=== PATIENT | male | born 1995 | race Two or more races ===

== ENCOUNTER 2022-11-21 22:31 | Emergency (ER) | payer OTHER ==
[~2022-11-21] VITALS: Ht 170.2 cm; Wt 108.9 kg
[2022-11-21] MEDS ORDERED: LORAZEPAM INJ 2 MG/ML VIAL IM ONE (23:00)
[2022-11-21] MEDS ORDERED: LORAZEPAM INJ 2 MG/ML VIAL ONE (23:05)
[2022-11-21 23:43] LABS: BASOPHILS % (AUTO) 0.4 % (0.0-2.0); EOSINOPHILS % (AUTO) 0.1 % (0.0-6.0); HEMATOCRIT 47 % (39-51); HEMOGLOBIN 15.8 g/dL (13.5-17.5); LYMPHOCYTES # (AUTO) 1.6 K/uL (0.8-4.8); LYMPHOCYTES % (AUTO) 13.6 % (20.0-44.0); MEAN CORPUSCULAR HEMOGLOBIN 29 PG (26.0-33.0); MEAN CORPUSCULAR HGB CONC 34 g/dl (31.0-36.0); MEAN CORPUSCULAR VOLUME 85 fL (80-96); MONOCYTES # (AUTO) 1.3 K/uL (0.1-1.30); MONOCYTES % (AUTO) 10.9 % (2.0-12.0); NEUTROPHILS # (AUTO) 8.8 K/uL (1.8-8.9); PLATELET COUNT (AUTO) 351 K/uL (150-450); RED BLOOD CELL COUNT(AUTO) 5.55 MIL/uL (4.5-6.0); RED CELL DISTRIBUTION WIDTH 14.4 % (11.5-15.0); WHITE BLOOD COUNT (AUTO) 11.7 K/uL (4.3-11.0)
[2022-11-22 00:08] LABS: ACETAMINOPHEN <10 ug/ml (10-30); ALANINE AMINOTRANSFERASE 56 U/L (12-78); ALBUMIN 4.9 g/dL (3.4-5.0); ALCOHOL, BLOOD < 3 mg/dL (0-10); ALKALINE PHOSPHATASE 81 U/L (46-116); ASPARTATE AMINOTRANSFERASE 54 U/L (15-37); BILIRUBIN,DIRECT 0.2 mg/dL (0.0-0.2); BILIRUBIN,TOTAL 0.9 mg/dL (0.2-1.0); CALCIUM, SERUM 10.1 mg/dL (8.5-10.1); CARBON DIOXIDE 22 mmol/L (21-32); CHLORIDE 102 mmol/L (98-107); GLUCOSE 128 mg/dL (74-106); POTASSIUM 3.8 mmol/L (3.5-5.1); SALICYLATE < 2.3 mg/dL (2.8-20.0); SODIUM SERUM 139 mmol/L (136-145); UREA NITROGEN, BLOOD 8 mg/dL (7-18)
[2022-11-22] MEDS ORDERED: OLANZAPINE 5 MG TABLET PO ONE (03:00)
[2022-11-22] MEDS ORDERED: OLANZAPINE 5 MG TABLET ONE (03:03)
[2022-11-22 03:14] LABS: APPEARANCE,URINE CLEAR (CLEAR); BILIRUBIN,URINE NEGATIVE (NEGATIVE); BLOOD, URINE NEGATIVE Ery/uL (NEGATIVE); COLOR,URINE YELLOW (YELLOW); KETONES,URINE TRACE mg/dL (NEGATIVE); LEUKOCYTE ESTERASE ,URINE NEGATIVE (NEGATIVE); NITRITE, URINE NEGATIVE (NEGATIVE); PROTEIN,URINE NEGATIVE (NEGATIVE); UGLUCOSE NEGATIVE (NEGATIVE); UROBILINOGEN,URINE 0.2 EU/dL (0.2)
[2022-11-22 03:17] LABS: PREGNANCY TEST URINE QUAL NEGATIVE
[2022-11-22 03:24] LABS: AMPHETAMINE, URINE POSITIVE (NEGATIVE); BARBITURATE, URINE NEGATIVE (NEGATIVE); BENZODIAZEPINE, URINE NEGATIVE (NEGATIVE); CANNABINOID, URINE POSITIVE (NEGATIVE); COCCAINE, URINE NEGATIVE (NEGATIVE); OPIATE, URINE NEGATIVE (NEGATIVE); PHENCYCLIDINE SCREEN,URINE NEGATIVE (NEGATIVE)
[2022-11-22] MEDS ORDERED: NALO4SPR BNOSTRILS (07:03)
[2022-11-22 07:34] VITALS: BP 176/96; TEMP 98.1; O2SAT 100
== END 2022-11-22 07:34 | disposition home or self-care (01) ==
LOC: ER 22:50
DX: F19.10 Other psychoactive substance abuse, uncomplicated (principal); R44.0 Auditory hallucinations; I10 Essential (primary) hypertension
CPT/HCPCS: 99283; 96372; 85025; 80048; 80076; 36415; 80143; 80320; 80307; 84703; 81003; J2060; G0480